=== PATIENT | male | born 1965 | race Caucasian/White ===

== ENCOUNTER 2019-07-28 21:14 | Emergency (ER) | payer MEDICARE ==
[~2019-07-28] VITALS: Ht 175.3 cm; Wt 75.0 kg
--- NOTE | 2019-07-28 22:54 | NUR ---
PATIENT CONTINUES TO BE SLEEPING. EASILY ARROUSABLE. 2L O2. VSS. WILL CONTINUE TO MONITOR.
--- NOTE | 2019-07-29 01:45 | NUR ---
PATIENT ALERT AND ORIENTED. AMBULATORY AROUND ER WITHOUT DIFFICULT. EATING/DRINKING WELL WITHOUT DIFFICULTY.
[2019-07-29 02:04] VITALS: BP 117/68
== END 2019-07-29 02:08 | disposition home or self-care (01) ==
LOC: ED 23:03
DX: F10.120 Alcohol abuse with intoxication, uncomplicated (principal); F17.210 Nicotine dependence, cigarettes, uncomplicated; Y90.0 Blood alcohol level of less than 20 mg/100 ml
CPT/HCPCS: 99283; 99406

== ENCOUNTER 2019-09-25 08:46 | Emergency (ER) | payer MEDICARE, MEDICAID ==
[~2019-09-25] VITALS: Ht 182.9 cm; Wt 80.0 kg
[2019-09-25] MEDS ORDERED: THIAMINE 100MG TABLET PO ONE (09:00)
--- NOTE | 2019-09-25 09:13 | NUR ---
ABRAHAM TRENT AT BEDSIDE FOR EVALUATION
[2019-09-25] MEDS ORDERED: THIAMINE 100MG TABLET ONE (09:15)
[2019-09-25 10:17] VITALS: BP 137/79
--- NOTE | 2019-09-25 10:18 | NUR ---
pt resting in bed.
--- NOTE | 2019-09-25 10:42 | NUR ---
PT QUESTIONING WHERE [facility] IS, PT TOLD NO BELONGINGS WERE BROUGHT IN WITH PT BY [facility]
--- NOTE | 2019-09-25 10:47 | NUR ---
DISCHARGE INSTRUCTIONS REVIEWED.
== END 2019-09-25 11:11 | disposition home or self-care (01) ==
LOC: ED 11:05
DX: S09.90XA Unspecified injury of head, initial encounter (principal); M50.30 Other cervical disc degeneration, unspecified cervical region; F10.120 Alcohol abuse with intoxication, uncomplicated; W22.8XXA Striking against or struck by other objects, initial encounter; Y93.89 Activity, other specified; Y92.89 Other specified places as the place of occurrence of the external cause; Y99.8 Other external cause status; Y90.9 Presence of alcohol in blood, level not specified
CPT/HCPCS: 70450; 72125; 99285

== ENCOUNTER 2020-03-03 16:51 | Emergency (ER) | payer MEDICARE, MEDICAID ==
[~2020-03-03] VITALS: Ht 180.3 cm; Wt 86.0 kg
--- NOTE | 2020-03-03 17:23 | NUR ---
PATIENT BIB [facility] WITH CHIEF C/O ETOH AND BILATERAL KNEE PAIN. PATIENT STATES THE BACK OF HIS KNEES HAVE BEEN HURTING THE LAST 1.5-2 WEEKS. PER EMS PATIENTS FRIEND CALLED [facility] TO PICK PATIENT UP. PATIENT REPORTS DRINKING 2 PINTS OF VODKA TODAY. PATIENT STATES HE NORMALLY DRINKS "FUCKING THREE FIFTHS" OF ALCOHOL PER DAY. PER EMS PATIENT WAS A&Ox1, ONLY ORIENTED TO SELF. PATIENT IS NOW ORIENTED TO SELF, AND WHY HE IS AT THE HOSPITAL, PATIENT KEPT ASKING "WHAT'S YOUR NAME." PHYSICAL ASSESSMENT OF PATIENT'S POSTERIOR KNEES REVEALED MULTIPLE SCABS, AND SOME OPEN AREAS OF SKIN. PATIENT STATES IT WAS ITCHING AND HE STARTED "SCRATCHING IT AND NOW IT IS WHERE IT IS." PATIENT TOLD EMS THAT IT IS A STAPH INFECTION AND LAST TIME HE WAS HERE PATIENT WAS TOLD THERE WAS NOTHING TO DO ABOUT IT. MONSERRAT, CONNECTED TO SENIOR SAFET[employer] SUPPORT MANAGER, VSS, SIDE RAILS UP X2, CALL LIGHT WITHIN REACH.
[2020-03-03 18:32] LABS: BASOPHILS % (AUTO) 1 % (0-1); EOSINOPHILS % (AUTO) 4 % (1-7); LYMPHOCYTES % (AUTO) 20 % (22-44); MEAN CORPUSCULAR HEMOGLOBIN 32.8 pg (27.5-34.5); MEAN CORPUSCULAR HGB CONC 34.1 g/dL (33.2-36.2); MEAN PLATELET VOLUME 8.3 fL (7.4-10.4); MONOCYTES % (AUTO) 9 % (2-9); NEUTROPHILS % (AUTO) 66 % (42-75); PLATELET COUNT 193 x10^3/uL (130-400); RED CELL DISTRIBUTION WIDTH 14.3 % (9.4-14.8)
[2020-03-03 18:35] LABS: MD NO
[2020-03-03 18:44] LABS: ALANINE AMINOTRANSFERASE 22 U/L (12-78); ALBUMIN 2.6 g/dL (3.4-5.0); ANION GAP 7 mmol/L (5-15); CALCIUM 7.3 mg/dL (8.5-10.1); CHLORIDE 109 mmol/L (98-107); CREATININE 0.69 mg/dL (0.7-1.3)
[2020-03-03 18:49] LABS: ALKALINE PHOSPHATASE 129 U/L (45-117); BILIRUBIN,TOTAL 0.3 mg/dL (0.2-1.0); TOTAL PROTEIN 7.2 g/dL (6.4-8.2); TROPONIN I < 0.015 ng/mL (0.000-0.045)
--- NOTE | 2020-03-03 18:56 | NUR ---
HAT LINING BLOCKER AT BEDSIDE DOING EKG EDUCATED PATIENT ABOUT NEED FOR URINE SAMPLE, PROVIDED WATER FOR PATIENT TO DRINK, URINAL AT BEDSIDE.
--- NOTE | 2020-03-03 20:26 | NUR ---
PATIENT AMBULATED TO BATHROOM, URINE SAMPLE COLLECTED AND SENT TO LAB.
[2020-03-03 20:45] LABS: AMPHETAMINE SCREEN, URINE Negative (Negative); BARBITURATE SCREEN, URINE Negative (Negative); BENZODIAZEPINE SCREEN, URINE Negative (Negative); CANNABINOID SCREEN, URINE Positive (Negative); COCAINE SCREEN, URINE Negative (Negative); METHADONE SCREEN, URINE Negative (Negative); OPIATE SCREEN, URINE Negative (Negative)
--- NOTE | 2020-03-03 21:25 | NUR ---
PATIENT SITTING IN [facility] REQUESTING TO SPEAK WITH THE DOCTOR ABOUT "MY LEGS." ERMD DISCUSSED POSTERIOR KNEE SCABBING WITH PATIENT.
[2020-03-03 22:11] VITALS: BP 164/94
--- NOTE | 2020-03-03 22:20 | NUR ---
PATIENT SITTING IN GURNEY, FOOD PROVIDED TO PATIENT, LIBIAN, RICHELLES, CALL LIGHT WITHIN REACH.
[2020-03-03] MEDS ORDERED: HYDROCORTISONE CRM 2.5%, 20GM TP ONE (23:30)
--- NOTE | 2020-03-03 23:36 | NUR ---
Patient given discharge instructions and prescriptions and they have confirmed that they understand the instructions. Patient given clean clothes, and steroid cream tube. Taxi voucher given and cab called. Patient stable and ambulatory with steady gait from ED to taxi.
== END 2020-03-03 23:37 | disposition home or self-care (01) ==
LOC: ED 20:36
DX: F10.220 Alcohol dependence with intoxication, uncomplicated (principal); L01.01 Non-bullous impetigo; L30.9 Dermatitis, unspecified; R06.02 Shortness of breath; R00.9 Unspecified abnormalities of heart beat; F17.200 Nicotine dependence, unspecified, uncomplicated; Y90.0 Blood alcohol level of less than 20 mg/100 ml
CPT/HCPCS: 36415; 71045; 80053; 80307; 80320; 84484; 85025; 93005; 99285; G0480

== ENCOUNTER 2020-11-23 12:42 | Inpatient (IN) | payer MEDICARE, MEDICAID ==
[~2020-11-23] VITALS: Ht 177.8 cm; Wt 73.3 kg
[2020-11-23 13:26] LABS: BASOPHILS % (AUTO) 0 % (0-1); EOSINOPHILS % (AUTO) 0 % (1-7); LYMPHOCYTES % (AUTO) 7 % (22-44); MEAN CORPUSCULAR HEMOGLOBIN 33.2 pg (27.5-34.5); MEAN CORPUSCULAR HGB CONC 34.7 g/dL (33.2-36.2); MONOCYTES % (AUTO) 8 % (2-9); NEUTROPHILS % (AUTO) 86 % (42-75); PLATELET COUNT 137 x10^3/uL (130-400); RED BLOOD COUNT 5.22 x10^6/uL (4.38-5.82); RED CELL DISTRIBUTION WIDTH 12.6 % (9.4-14.8)
[2020-11-23] MEDS ORDERED: PLEASE ENTER HEIGHT AND WEIGHT MC SCH (13:30)
[2020-11-23] MEDS ORDERED: LORazepam 1MG TABLET PO ONE (13:30)
[2020-11-23 13:39] LABS: ALBUMIN 2.6 g/dL (3.4-5.0); ANION GAP 14 mmol/L (5-15); CALCIUM 8.5 mg/dL (8.5-10.1); CHLORIDE 98 mmol/L (98-107)
[2020-11-23 13:44] LABS: ALANINE AMINOTRANSFERASE 37 U/L (12-78); ALKALINE PHOSPHATASE 88 U/L (45-117); BILIRUBIN,TOTAL 1.1 mg/dL (0.2-1.0); CREATININE 0.63 mg/dL (0.7-1.3); TOTAL PROTEIN 7.7 g/dL (6.4-8.2); TROPONIN I < 0.015 ng/mL (0.000-0.045)
[2020-11-23] MEDS ORDERED: LORazepam 1MG TABLET ONE (14:10)
[2020-11-23] MEDS ORDERED: POTASSIUM CHLORIDE 20 MEQ TAB.ER.PRT ONE (14:15)
[2020-11-23] MEDS ORDERED: LORazepam 2 MG/ML, 1ML IVPush PRN (14:30)
[2020-11-23] MEDS ORDERED: POTASSIUM CHLORIDE 20 MEQ TAB.ER.PRT PO ONE (14:30)
--- NOTE | 2020-11-23 14:30 | NUR ---
pt medicated per emar, tolerated well. pt a&o, resps even and unlabored, sinus tach on hall monitor rate 100s. pt mildly tremulous. call light in reach. awaiting further orders.
[2020-11-23] MEDS ORDERED: SODIUM CHLORIDE FLUSH 10ML SYR IVF PRN (15:00)
[2020-11-23] MEDS ORDERED: MAGNESIUM SULFATE 1 GM, THIAMINE 100 MG, FOLIC ACID 1 MG, MVI ADULT 10 ML in SODIUM CHL... IV ONE (15:08)
[2020-11-23] MEDS ORDERED: PHYTONADIONE 10 MG/ML, 1ML ONE (15:13)
[2020-11-23] MEDS ORDERED: ONDANSETRON 2MG/ML, 2ML IVPush PRN (15:30)
[2020-11-23] MEDS ORDERED: CHLORDIAZEPOXIDE 10 MG CAPSULE PO SCH (15:30)
[2020-11-23] MEDS ORDERED: ONDANSETRON ODT 4 MG PO PRN (15:30)
[2020-11-23] MEDS ORDERED: CHLORDIAZEPOXIDE 25 MG CAPSULE PO SCH (15:30)
[2020-11-23] MEDS ORDERED: ACETAMINOPHEN 325 MG TABLET PO PRN (15:30)
[2020-11-23] MEDS ORDERED: THIAMINE 200 MG in DEXTROSE 5% 50 ML IVPB ONE (15:30)
[2020-11-23] MEDS ORDERED: BACLOFEN 10 MG TABLET PO PRN (15:30)
[2020-11-23] MEDS ORDERED: LORazepam 2 MG/ML, 1ML IV PRN (15:30)
--- NOTE | 2020-11-23 15:30 | NUR ---
pt sleeping on gurney, resps even and unlabored, nadn. all monitors remain in place.
[2020-11-23] MEDS ORDERED: POTASSIUM CHLORIDE 40 MEQ in SODIUM CHLORIDE 0.9% 500 ML IV ONE ×2 (16:00→20:00)
[2020-11-23 16:26] LABS: FREE T4 (FREE THYROXINE) 1.96 ng/dL (0.76-1.46)
[2020-11-23] MEDS ORDERED: LORazepam 2 MG/ML, 1ML ONE (16:45)
--- NOTE | 2020-11-23 17:04 | NUR ---
verbal order received from MD Ramirez for urine drugs of abuse and blood alcohol level. pt awake, alert, calm but tremulous with arms extended. pt medicated per emar, now sleeping, resps even and unlabored. sinus tach rate 100s with no ectopy on band saw runner.
--- NOTE | 2020-11-23 18:41 | NUR ---
THIS RN ATTEMPTED TO CALL REPORT X 1, UNABLE TO REACH RECEIVING RN
--- NOTE | 2020-11-23 18:46 | NUR ---
PT A&O X 4, RESPS EVEN AND UNLABORED, SINUS TACH RATE 90'S OPN CARIDAC MONITOR WITH NO ECTOPY NOTED. CIWA 1. ALL MONITORS IN PLACE. NADN AT THIS TIME.
--- NOTE | 2020-11-23 19:17 | NUR ---
report given to RN Mary, receiving RN aware banana bag and thiamine still require admin. pt a&o, resps even and unlabored, sinus tach on monitoring tech prior to transport. nadn at transport.
[2020-11-23] MEDS ORDERED: THIAMINE 100MG TABLET PO ONE (19:30)
[2020-11-23] MEDS ORDERED: FOLIC ACID 1 MG TABLET PO ONE (19:30)
[2020-11-23] MEDS ORDERED: NICOTINE 21 MG/24 HR PATCH.TD24 TD ONE (20:00)
[2020-11-23] MEDS: DIAZEPAM 10 MG TABLET PO SCH (20:06)
[2020-11-23] MEDS: HEPARIN 5,000 UNITS/ML, 1ML SQ SCH (20:07)
[2020-11-23] MEDS: LACTULOSE 10 GM/15 ML UDC PO SCH (20:08)
[2020-11-23 20:20] VITALS: BP 176/112
[2020-11-23 20:26] VITALS: BP 174/119
[2020-11-23] MEDS ORDERED: ENALAPRILAT 1.25 MG/ML, 1ML ONE (20:36)
[2020-11-23] MEDS: ENALAPRILAT 1.25 MG/ML, 2ML IVPush PRN (20:45)
[2020-11-24 01:16] VITALS: BP 139/92
[2020-11-24] MEDS: DIAZEPAM 10 MG TABLET PO SCH ×4 (03:54→20:24)
[2020-11-24] MEDS: HEPARIN 5,000 UNITS/ML, 1ML SQ SCH ×3 (03:54→20:24)
[2020-11-24] MEDS ORDERED: PERMETHRIN CRM 5%, 60GM TP ONE (04:30)
[2020-11-24 04:36] LABS: BASOPHILS % (AUTO) 0 % (0-1); EOSINOPHILS % (AUTO) 2 % (1-7); LYMPHOCYTES % (AUTO) 11 % (22-44); MEAN CORPUSCULAR HEMOGLOBIN 33.1 pg (27.5-34.5); MEAN CORPUSCULAR HGB CONC 34.6 g/dL (33.2-36.2); MEAN PLATELET VOLUME 9.7 fL (7.4-10.4); MONOCYTES % (AUTO) 9 % (2-9); NEUTROPHILS % (AUTO) 78 % (42-75); PLATELET COUNT 129 x10^3/uL (130-400); RED BLOOD COUNT 4.96 x10^6/uL (4.38-5.82); RED CELL DISTRIBUTION WIDTH 12.8 % (9.4-14.8)
[2020-11-24 04:41] LABS: ALBUMIN 2.3 g/dL (3.4-5.0); ANION GAP 6 mmol/L (5-15); CHLORIDE 101 mmol/L (98-107)
[2020-11-24 05:02] LABS: ALANINE AMINOTRANSFERASE 31 U/L (12-78); ALKALINE PHOSPHATASE 80 U/L (45-117); BILIRUBIN, DIRECT 0.4 mg/dL (0.1-0.2); BILIRUBIN,INDIRECT 1.1 mg/dL (0.0-2.0); BILIRUBIN,TOTAL 1.5 mg/dL (0.2-1.0); CALCIUM 7.8 mg/dL (8.5-10.1); CREATININE 0.55 mg/dL (0.7-1.3); TOTAL PROTEIN 6.9 g/dL (6.4-8.2)
[2020-11-24] MEDS ORDERED: PANTOPRAZOLE 40MG TABLET PO SCH (07:30)
[2020-11-24] MEDS: MULTIVITAMINS/MINERALS TABLET PO SCH (08:08)
[2020-11-24] MEDS: LACTULOSE 10 GM/15 ML UDC PO SCH ×2 (08:08→20:23)
[2020-11-24 08:24] VITALS: BP 189/114
[2020-11-24] MEDS ORDERED: ENALAPRILAT 1.25 MG/ML, 1ML ONE ×2 (08:35→14:23)
[2020-11-24] MEDS: ENALAPRILAT 1.25 MG/ML, 2ML IVPush PRN ×2 (08:42→14:30)
[2020-11-24 09:04] VITALS: BP 135/92
[2020-11-24 12:46] VITALS: BP 173/106
[2020-11-24] MEDS: ALUMINUM/MAG/SIMETHICONE 30 ML UDC PO PRN ×2 (13:00→15:30)
[2020-11-24 14:25] LABS: AMPHETAMINE SCREEN, URINE Negative (Negative); BARBITURATE SCREEN, URINE Negative (Negative); BENZODIAZEPINE SCREEN, URINE Positive (Negative); CANNABINOID SCREEN, URINE Positive (Negative); COCAINE SCREEN, URINE Negative (Negative); METHADONE SCREEN, URINE Negative (Negative); OPIATE SCREEN, URINE Negative (Negative)
[2020-11-24 20:19] VITALS: BP 117/90
[2020-11-24] MEDS: PANTOPRAZOLE 40MG TABLET PO SCH (20:24)
[2020-11-25 01:42] VITALS: BP 132/77
[2020-11-25] MEDS: DIAZEPAM 10 MG TABLET PO SCH ×4 (04:15→20:05)
[2020-11-25] MEDS: HEPARIN 5,000 UNITS/ML, 1ML SQ SCH ×3 (04:15→20:05)
[2020-11-25 09:22] VITALS: BP 158/110
[2020-11-25] MEDS: SUCRALFATE 1 GM TABLET PO SCH ×4 (09:37→20:05)
[2020-11-25] MEDS: PANTOPRAZOLE 40MG TABLET PO SCH ×2 (09:37→20:05)
[2020-11-25] MEDS: ALUMINUM/MAG/SIMETHICONE 30 ML UDC PO PRN ×2 (09:38→16:43)
[2020-11-25] MEDS: MULTIVITAMINS/MINERALS TABLET PO SCH (09:38)
[2020-11-25] MEDS: LACTULOSE 10 GM/15 ML UDC PO SCH ×2 (09:38→20:05)
[2020-11-25 12:30] VITALS: BP 155/77
[2020-11-25 20:02] VITALS: BP 139/84
[2020-11-26 01:40] VITALS: BP 111/71
[2020-11-26] MEDS: DIAZEPAM 10 MG TABLET PO SCH ×2 (01:43→09:35)
[2020-11-26] MEDS: HEPARIN 5,000 UNITS/ML, 1ML SQ SCH ×2 (05:23→11:41)
[2020-11-26] MEDS: SUCRALFATE 1 GM TABLET PO SCH ×2 (08:00→09:41)
[2020-11-26] MEDS ORDERED: SUCR1TAB33 PO (08:24)
[2020-11-26] MEDS ORDERED: PANT40TA6 PO (08:24)
[2020-11-26] MEDS: LACTULOSE 10 GM/15 ML UDC PO SCH (09:41)
[2020-11-26] MEDS: MULTIVITAMINS/MINERALS TABLET PO SCH (09:41)
[2020-11-26] MEDS: PANTOPRAZOLE 40MG TABLET PO SCH (09:41)
[2020-11-26 09:47] VITALS: BP 153/87
== END 2020-11-26 14:03 | disposition home or self-care (01) | DRG 392 ==
LOC: ED 15:05 → 4WST 19:35
PROVIDERS: ADMIT Internal Medicine; ATTEND Internal Medicine
DX: K29.20 Alcoholic gastritis without bleeding (principal); F10.139 Alcohol abuse with withdrawal, unspecified; D72.829 Elevated white blood cell count, unspecified; D75.1 Secondary polycythemia; E87.6 Hypokalemia; E88.09 Other disorders of plasma-protein metabolism, not elsewhere classified; F17.210 Nicotine dependence, cigarettes, uncomplicated; L25.9 Unspecified contact dermatitis, unspecified cause; Z59.0 Homelessness; B85.1 Pediculosis due to Pediculus humanus corporis; Y90.9 Presence of alcohol in blood, level not specified; F10.129 Alcohol abuse with intoxication, unspecified
CPT/HCPCS: 36415; 71045; 80048; 80053; 80076; 80307; 80320; 83690; 83735; 83880; 84439; 84443; 84484; 85025; 93005; 96374; 99285; G0378; J1644; J3411; J3475; J3480; G0480; J2060; J7030; J7040